=== PATIENT | male | born 1960 | race Caucasian/White ===

== ENCOUNTER 2018-04-13 09:06 | Emergency (ER) | payer MEDICAID ==
[2018-04-13] MEDS ORDERED: CLINDAMYCIN 600MG/50ML PREMIX 600 MG/50 ML BAG IVPB ONE (09:31)
--- NOTE | 2018-04-13 09:39 | Emergency Department Record ---
History of Present Illness - General Chief complaint: Abscess Stated complaint: LEFT SIDE FACIAL SWELLING Time Seen by Provider: 04/13/18 09:10 Source: Patient Mode of Arrival: Ambulatory Limitations: No limitations - History of Present Illness Initial comments: pt states he had a small bump on the front of her ear which he picked at and now he has erythwma, swelling and pain to the whole l side of his face and neck and ear complaint: Abscess/boil Onset/Timin -: Days(s) Hx Tetanus Toxoid Vaccination: Yes Location: Head, Face, Neck Severity: Moderate Severity scale (1-10): 8 Quality: Sharp Consistency: Constant Improves with: None Worsens with: Palpation Context: None Associated symptoms: Denies other symptoms Treatments Prior to Arrival: Attempted to drain pus at home - Related Data Home Medications Medication Instructions Recorded Confirmed Last Taken Clonazepam 1 mg PO DAILY 04/13/18 04/13/18 Unknown Allergies Allergy/AdvReac Type Severity Reaction Status Date / Time bee venom protein (honey bee) Allergy Intermediate SWELLING Unverified 10/21/17 11:05 (GENERAL) codeine Allergy Intermediate RASH Unverified 10/21/17 11:05 Travel Screening - Travel/Exposure Within Last 30 Days Have you traveled within the last 30 days?: No Review of Systems Reviewed: No additional complaints except as noted below Constitutional: Reports: As per HPI. Denies: Chills, Fever, Malaise, Night sweats, Weakness, Weight change Eyes: Reports: As per HPI. Denies: Eye discharge, Eye pain, Photophobia, Vision change ENT: Reports: As per HPI. Denies: Congestion, Dental pain, Ear pain, Epistaxis , Hearing loss, Throat pain Respiratory: Reports: As per HPI. Denies: Cough, Dyspnea, Hemoptysis, Stridor, Wheezes Cardiovascular: Reports: As per HPI. Denies: Arrhythmia, Chest pain, Dyspnea on exertion, Edema, Murmurs, Orthopnea, Palpitations, Paroxysmal nocturnal dyspnea, Rheumatic Fever, Syncope Endocrine: Reports: As per HPI. Denies: Fatigue, Heat or cold intolerance, Polydipsia, Polyuria Gastrointestinal: Reports: As per HPI. Denies: Abdominal pain, Constipation, Diarrhea, Hematemesis, Hematochezia, Melena, Nausea, Vomiting Genitourinary: Reports: As per HPI. Denies: Dysuria, Frequency, Hematuria, Incontinence, Retention, Testicular pain, Testicular mass, Urgency Musculoskeletal: Reports: As per HPI. Denies: Arthralgia, Back pain, Gout, Joint swelling, Myalgia, Neck pain Skin: Reports: As per HPI. Denies: Bruising, Change in color, Change in hair/ nails, Lesions, Pruritus, Rash Neurological: Reports: As per HPI. Denies: Abnormal gait, Confusion, Headache, Numbness, Paresthesias, Seizure, Tingling, Tremors, Vertigo, Weakness Psychiatric: Reports: As per HPI. Denies: Anxiety, Auditory hallucinations, Depression, Homicidal thoughts, Suicidal thoughts, Visual hallucinations Hematological/Lymphatic: Reports: As per HPI. Denies: Anemia, Blood Clots, Easy bleeding, Easy bruising, Swollen glands Past Medical History - SOCIAL HISTORY Smoking Status: Former smoker Alcohol Use: None Drug Use: None - RESPIRATORY Hx Respiratory Disorders: No - CARDIOVASCULAR Hx Cardio Disorders: Yes Hx Hypertension: Yes - NEURO Hx Neuro Disorders: No - GI Hx GI Disorders: No - Hx Genitourinary Disorders: No - ENDOCRINE Hx Endocrine Disorders: No - MUSCULOSKELETAL Hx Musculoskeletal Disorders: Yes - PSYCH Hx Psych Problems: Yes Hx Anxiety: Yes - HEMATOLOGY/ONCOLOGY Hx Hematology/Oncology Disorders: No Family Medical History Any Significant Family History?: No Physical Exam - General General Appearance: Alert, Oriented x3, Cooperative, Mild distress - Head Head exam: Normal inspection Head exam detail: General tenderness Image of Face/Head: 1 - tender, swelling, erythema - Eye Eye exam: Normal appearance, PERRL, EOMI Pupils: Normal accommodation - ENT ENT exam: Normal exam, Mucous membranes moist, Normal external ear exam, Normal orophraynx Ear exam: negative: Normal external inspection, External canal tenderness Nasal Exam: Normal inspection. negative: Discharge, Sinus tenderness Mouth exam: Normal external inspection, Tongue normal Teeth exam: Normal inspection. negative: Dental caries Throat exam: Normal inspection. negative: Tonsillar erythema, Tonsillar exudate - Neck Neck exam: Normal inspection, Full ROM. negative: Tenderness - Respiratory Respiratory exam: Normal lung sounds bilaterally. negative: Respiratory distress - Cardiovascular Cardiovascular Exam: Normal rhythm, Normal heart sounds, Tachycardia - GI/Abdominal GI/Abdominal exam: Soft, Normal bowel sounds. negative: Tenderness - Rectal Rectal exam: Deferred - exam: Deferred - Extremities Extremities exam: Normal inspection, Full ROM, Normal capillary refill. negative: Tenderness - Back Back exam: Reports: Normal inspection, Full ROM. Denies: Muscle spasm, Rash noted, Tenderness - Neurological Neurological exam: Alert, CN II-XII intact, Normal gait, Oriented X3 - Psychiatric Psychiatric exam: Normal affect, Normal mood - Skin Skin exam: Dry, Intact, Normal color, Warm Course Vital Signs 04/13/18 09:09 Temperature 97.9 F Pulse Rate 129 H Respiratory 18 Rate Blood Pressure 110/78 Pulse Ox 95 - Reevaluation(s) Reevaluation #1: 04/13/18 11:58 pt was told he needs to be admitted. he is concerned re his dad and meds at home. he is signing out ama but states he will return to be admitted Medical Decision Making - Lab Data Result diagrams: 04/13/18 09:40 04/13/18 09:40 Disposition Disposition: Other Clinical Impression: Cellulitis and abscess of face Disposition: Against Medical Advice Condition: (2) Stable Instructions: Cellulitis (ED) Additional Instructions: may return arturo Forms: Patient Portal Access Quality - Quality Measures Quality Measures: N/A - Blood Pressure Screening Does Patient Have Any of the Following: No Blood Pressure Classification: Normal BP Reading Systolic Measurement: 110 Diastolic Measurement: 78 Screening for High Blood Pressure: < Normal BP, F/U Not Required > [G8783]
[2018-04-13] MEDS ORDERED: 0.9 % SODIUM CHLORIDE 1,000 ML BAG IV ONE (09:41)
[2018-04-13 09:45] LABS: HEMATOCRIT 42.5 % (42.0-52.0); HEMOGLOBIN 14.8 gm/dl (14.0-18.0); MEAN CELL VOLUME 90.8 fl (81-97); MEAN CORPUSCULAR HEMOGLOBIN 31.6 pg (27-33); MEAN CORPUSCULAR HGB CONC 34.8 g/dl (32-36); MEAN PLATELET VOLUME 9.1 fl (7.4-10.4); PLATELET COUNT 192 K/uL (130-400); RED BLOOD COUNT 4.68 M/uL (4.40-5.70); RED CELL DISTRIBUTION WIDTH 12.4 % (11.5-14.5); WHITE BLOOD COUNT W/O DIFF 13.8 K/uL (4.2-12.2)
[2018-04-13 09:57] LABS: BLOOD UREA NITROGEN 7 mg/dL (6-20); CREATININE 0.8 mg/dL (0.7-1.2); EST GLOMERULAR FILTRATION RATE > 60 mL/min
[2018-04-13 09:59] LABS: GLUCOSE,RANDOM 196 mg/dL (74-109)
--- NOTE | 2018-04-14 11:03 | CT SCAN REPORT ---
EXAM: CT SCAN OF THE NECK WITH CONTRAST HISTORY: ABSCESS. THE PATIENT HAD A BUMP NEAR THE LEFT EAR ON GUERLINE. PATIENT TRIED TO SQUEEZE THE LUMP AND NOTHING CAME OUT. SUBSEQUENT SWELLING AND REDNESS ALONG THE LEFT SIDE OF THE FACE. TECHNIQUE: Standard CT imaging of the neck was performed in the axial plane with contrast. 100 ml of Omnipaque 300 were administered. Additional coronal and sagittal reformatted images were also performed. FINDINGS: There is a small loculated collection of fluid and air within the dermis anterior to the left ear. This measures 8 x 5 x 9 mm. There is extensive soft tissue edema on the left within the periauricular region and extending anteriorly to the left lateral orbital rim. This extends inferiorly to the submandibular region. The appearance is consistent with facial cellulitis. There is no other soft tissue air. There is no foreign body. The intraorbital contents are normal. There is minor mucosal thickening within the ethmoid sinuses. The sinuses are otherwise clear. The mastoid air cells and middle ear cavities are clear. Cerumen like material is noted within the left external auditory canal. The nasopharynx, oropharynx, hypopharynx, and larynx appear normal. There are scattered nonenlarged lymph odes within the neck bilaterally. There is no pathologic lymphadenopathy. The thyroid gland enhances homogeneously. The lung apices and superior mediastinum are normal. The patient is status post anterior cervical fusion at the C5-C6 level. There are no acute osseous abnormalities. IMPRESSION: FINDINGS CONSISTENT WITH LEFT FACIAL CELLULITIS. THERE IS A LOCULATED FLUID COLLECTION WITHIN THE DERMIS JUST ANTERIOR TO THE LEFT EAR MEASURING 8 X 5 X 9 MM. NO OTHER LOCULATED FLUID COLLECTIONS OR SOFT TISSUE AIR ARE IDENTIFIED. JOB NUMBER: [id number] [facility]
== END 2018-04-13 12:28 | disposition left against medical advice (07) ==
LOC: ER 09:06
DX: L03.211 Cellulitis of face (principal); I10 Essential (primary) hypertension; Z87.891 Personal history of nicotine dependence
CPT/HCPCS: 70491; 80048; 85027; J7030

== ENCOUNTER 2018-04-13 13:10 | Inpatient (IN) | payer MEDICAID ==
--- NOTE | 2018-04-13 13:58 | Emergency Department Record ---
History of Present Illness - General Chief complaint: Abscess Stated complaint: CELLULITIS Time Seen by Provider: 04/13/18 13:54 Source: Patient Mode of Arrival: Ambulatory Limitations: No limitations - History of Present Illness Initial comments: pt came back to be admitted. he was here earlier for facial cellulitis and was told he should be admitted. he signed out ama but now has returned. complaint: Abscess/boil -: Days(s) Hx Tetanus Toxoid Vaccination: Yes Location: Face Consistency: Getting worse Improves with: None Worsens with: None Context: None Associated symptoms: Denies other symptoms Treatments Prior to Arrival: Attempted to drain pus at home - Related Data Home Medications Medication Instructions Recorded Confirmed Last Taken Cyclobenzaprine HCl [Flexeril] 10 mg PO TID 04/13/18 04/13/18 Unknown Metoprolol Succinate 25 mg PO DAILY 04/13/18 04/13/18 Unknown Prazosin HCl [Minipress] 10 mg PO QHS 04/13/18 04/13/18 Unknown Allergies Allergy/AdvReac Type Severity Reaction Status Date / Time bee venom protein (honey bee) Allergy Intermediate SWELLING Unverified 10/21/17 11:05 (GENERAL) codeine Allergy Intermediate RASH Unverified 10/21/17 11:05 Review of Systems Reviewed: No additional complaints except as noted below Constitutional: Reports: As per HPI. Denies: Chills, Fever, Malaise, Night sweats, Weakness, Weight change Eyes: Reports: As per HPI. Denies: Eye discharge, Eye pain, Photophobia, Vision change ENT: Reports: As per HPI. Denies: Congestion, Dental pain, Ear pain, Epistaxis , Hearing loss, Throat pain Respiratory: Reports: As per HPI. Denies: Cough, Dyspnea, Hemoptysis, Stridor, Wheezes Cardiovascular: Reports: As per HPI. Denies: Arrhythmia, Chest pain, Dyspnea on exertion, Edema, Murmurs, Orthopnea, Palpitations, Paroxysmal nocturnal dyspnea, Rheumatic Fever, Syncope Endocrine: Reports: As per HPI. Denies: Fatigue, Heat or cold intolerance, Polydipsia, Polyuria Gastrointestinal: Reports: As per HPI. Denies: Abdominal pain, Constipation, Diarrhea, Hematemesis, Hematochezia, Melena, Nausea, Vomiting Genitourinary: Reports: As per HPI. Denies: Dysuria, Frequency, Hematuria, Incontinence, Retention, Testicular pain, Testicular mass, Urgency Musculoskeletal: Reports: As per HPI. Denies: Arthralgia, Back pain, Gout, Joint swelling, Myalgia, Neck pain Skin: Reports: As per HPI. Denies: Bruising, Change in color, Change in hair/ nails, Lesions, Pruritus, Rash Neurological: Reports: As per HPI. Denies: Abnormal gait, Confusion, Headache, Numbness, Paresthesias, Seizure, Tingling, Tremors, Vertigo, Weakness Psychiatric: Reports: As per HPI. Denies: Anxiety, Auditory hallucinations, Depression, Homicidal thoughts, Suicidal thoughts, Visual hallucinations Hematological/Lymphatic: Reports: As per HPI. Denies: Anemia, Blood Clots, Easy bleeding, Easy bruising, Swollen glands Past Medical History - SOCIAL HISTORY Smoking Status: Former smoker Drug Use: None - RESPIRATORY Hx Respiratory Disorders: No - CARDIOVASCULAR Hx Cardio Disorders: Yes Hx Hypertension: Yes - NEURO Hx Neuro Disorders: No - GI Hx GI Disorders: No - Hx Genitourinary Disorders: No - ENDOCRINE Hx Endocrine Disorders: No - MUSCULOSKELETAL Hx Musculoskeletal Disorders: Yes - PSYCH Hx Psych Problems: Yes Hx Anxiety: Yes - HEMATOLOGY/ONCOLOGY Hx Hematology/Oncology Disorders: No Physical Exam - General General Appearance: Alert, Oriented x3, Cooperative, Mild distress - Head Head exam: Normal inspection Image of Face/Head: 1 - swelling, erythema, tender, purulent drainage - Eye Eye exam: Normal appearance, PERRL, EOMI Pupils: Normal accommodation - ENT ENT exam: Normal exam, Mucous membranes moist, Normal external ear exam, Normal orophraynx Ear exam: Normal external inspection. negative: External canal tenderness Nasal Exam: Normal inspection. negative: Discharge, Sinus tenderness Mouth exam: Normal external inspection, Tongue normal Teeth exam: Normal inspection. negative: Dental caries Throat exam: Normal inspection. negative: Tonsillar erythema, Tonsillar exudate - Neck Neck exam: Normal inspection, Full ROM. negative: Tenderness - Respiratory Respiratory exam: Normal lung sounds bilaterally. negative: Respiratory distress - Cardiovascular Cardiovascular Exam: Normal rhythm, Normal heart sounds, Tachycardia - GI/Abdominal GI/Abdominal exam: Soft, Normal bowel sounds. negative: Tenderness - Rectal Rectal exam: Deferred - exam: Deferred - Extremities Extremities exam: Normal inspection, Full ROM, Normal capillary refill. negative: Tenderness - Back Back exam: Reports: Normal inspection, Full ROM. Denies: Muscle spasm, Rash noted, Tenderness - Neurological Neurological exam: Alert, CN II-XII intact, Normal gait, Oriented X3 - Psychiatric Psychiatric exam: Normal affect, Normal mood - Skin Skin exam: Dry, Intact, Normal color, Warm Disposition Disposition: Admit Clinical Impression: Facial cellulitis Disposition: Still a Patient at [facility] Decision to Admit: Admit from ER Decision to Admit Date: 04/13/18 Decision to Admit Time: 14:17 Forms: Patient Portal Access Quality - Quality Measures Quality Measures: N/A - Blood Pressure Screening Does Patient Have Any of the Following: Active Dx of HTN Blood Pressure Classification: Hypertensive Reading Systolic Measurement: 137 Diastolic Measurement: 93 Screening for High Blood Pressure: Patient Exclusion, Hx of HTN [G9744]
[2018-04-13] MEDS ORDERED: 0.9 % SODIUM CHLORIDE 1,000 ML BAG IV ONE (14:15)
[2018-04-13] MEDS ORDERED: LORAZEPAM 2 MG/ML VIAL IV ONE (14:16)
[2018-04-13] MEDS ORDERED: ONDANSETRON 4 MG ODT TABLET SL ONE (14:16)
[2018-04-13] MEDS ORDERED: HYDROMORPHONE HCL 2 MG/ML VIAL IVP ONE (14:16)
[2018-04-13] MEDS ORDERED: ACETAMINOPHEN 500 MG TABLET PO PRN (15:11)
[2018-04-13] MEDS ORDERED: ONDANSETRON HCL IV 4 MG/2 ML VIAL IVP PRN (15:11)
[2018-04-13] MEDS ORDERED: CYCLOBENZAPRINE 10MG TABLET PO PRN (15:55)
[2018-04-13] MEDS ORDERED: CLONAZEPAM 1MG TABLET PO PRN (15:55)
[2018-04-13] MEDS ORDERED: CYCLOBENZAPRINE 10MG TABLET PO SCH (16:00)
[2018-04-13] MEDS: CLINDAMYCIN 600MG/50ML PREMIX 600 MG/50 ML BAG IVPB SCH ×2 (16:04→23:40)
[2018-04-13] MEDS: CYCLOBENZAPRINE 10MG TABLET PO SCH (16:25)
[2018-04-13] MEDS: HYDROMORPHONE HCL 2 MG/ML VIAL IVP PRN ×2 (18:20→22:29)
[2018-04-13] MEDS ORDERED: CLONAZEPAM 1MG TABLET PO SCH (22:00)
[2018-04-13] MEDS: ZOLPIDEM TARTRATE 5 MG TABLET PO SCH (22:27)
[2018-04-13] MEDS: PRAZOSIN HCL 1 MG CAPSULE PO SCH ×2 (22:38→23:01)
[2018-04-14] MEDS: HYDROMORPHONE HCL 2 MG/ML VIAL IVP PRN ×5 (04:46→22:55)
[2018-04-14 06:41] LABS: BASO % 0.1 % (0-6); EOS % 2.1 % (0-6); GRAN % 73.3 % (47-80); HEMATOCRIT 34.9 % (42.0-52.0); HEMOGLOBIN 11.5 gm/dl (14.0-18.0); LYMPH % 14.8 % (16-45); MEAN CELL VOLUME 94.1 fl (81-97); MEAN PLATELET VOLUME 8.9 fl (7.4-10.4); MONO % 9.7 % (0-9); PLATELET COUNT 168 K/uL (130-400); RED BLOOD COUNT 3.71 M/uL (4.40-5.70); RED CELL DISTRIBUTION WIDTH 12.2 % (11.5-14.5); WHITE BLOOD COUNT W/O DIFF 9.7 K/uL (4.2-12.2)
[2018-04-14 06:47] LABS: MEAN CORPUSCULAR HEMOGLOBIN 30.9 pg (27-33)
[2018-04-14 06:55] LABS: BLOOD UREA NITROGEN 5 mg/dL (6-20); CREATININE 0.6 mg/dL (0.7-1.2); EST GLOMERULAR FILTRATION RATE > 60 mL/min; GLUCOSE,RANDOM 128 mg/dL (74-109)
[2018-04-14] MEDS: CLINDAMYCIN 600MG/50ML PREMIX 600 MG/50 ML BAG IVPB SCH ×2 (08:15→17:24)
[2018-04-14] MEDS: METOPROLOL SUCC 25 MG TAB.ER PO SCH ×2 (08:16→10:39)
[2018-04-14] MEDS: CLONAZEPAM 1MG TABLET PO SCH ×2 (08:17→10:39)
[2018-04-14] MEDS: CYCLOBENZAPRINE 10MG TABLET PO SCH ×2 (08:17→10:38)
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
[2018-04-14] MEDS: HYDROCODONE/APAP 10/325 TABLET PO PRN ×2 (13:26→21:34)
[2018-04-14] MEDS ORDERED: NAPROXEN 250 MG TABLET PO ONE (16:45)
[2018-04-14] MEDS ORDERED: MUPIROCIN OINT 22 GM TUBE TOP PRN (16:49)
[2018-04-14] MEDS: VANCOMYCIN HCL 1,500 MG in 0.9 % SODIUM CHLORIDE 500ML 500 ML IVPB SCH (17:35)
[2018-04-14] MEDS: MUPIROCIN OINT 22 GM TUBE TOP SCH ×2 (17:36→22:54)
[2018-04-14] MEDS: ZOLPIDEM TARTRATE 5 MG TABLET PO SCH (22:53)
[2018-04-14] MEDS: PRAZOSIN HCL 1 MG CAPSULE PO SCH (22:54)
[2018-04-15] MEDS: HYDROMORPHONE HCL 2 MG/ML VIAL IVP PRN ×5 (02:17→22:51)
[2018-04-15] MEDS: VANCOMYCIN HCL 1,500 MG in 0.9 % SODIUM CHLORIDE 500ML 500 ML IVPB SCH ×2 (02:22→20:43)
[2018-04-15] MEDS: NAPROXEN 250 MG TABLET PO SCH ×2 (06:36→20:49)
[2018-04-15 06:38] LABS: BASO % 0.3 % (0-6); EOS % 4.1 % (0-6); HEMATOCRIT 36.6 % (42.0-52.0); HEMOGLOBIN 12.1 gm/dl (14.0-18.0); LYMPH % 23.3 % (16-45); MEAN CELL VOLUME 92.7 fl (81-97); MEAN CORPUSCULAR HEMOGLOBIN 30.6 pg (27-33); MEAN CORPUSCULAR HGB CONC 33.1 g/dl (32-36); MEAN PLATELET VOLUME 8.9 fl (7.4-10.4); MONO % 11.3 % (0-9); PLATELET COUNT 184 K/uL (130-400); RED BLOOD COUNT 3.95 M/uL (4.40-5.70); WHITE BLOOD COUNT W/O DIFF 6.7 K/uL (4.2-12.2)
[2018-04-15 06:52] LABS: ALB/GLOB RATIO 1.2 (1.1-1.8); ALBUMIN 3.5 g/dL (4.0-5.0); ALKALINE PHOSPHATASE 46 U/L (55-149); ALT/SGPT 10 U/L (<41); AST/SGOT 8 U/L (10.0-50.0); BLOOD UREA NITROGEN 8 mg/dL (6-20); CREATININE 0.6 mg/dL (0.7-1.2); EST GLOMERULAR FILTRATION RATE > 60 mL/min; GLUCOSE,RANDOM 103 mg/dL (74-109); TOTAL PROTEIN 6.4 g/dL (6.6-8.7)
[2018-04-15] MEDS: MUPIROCIN OINT 22 GM TUBE TOP SCH ×4 (08:00→22:21)
[2018-04-15] MEDS: CYCLOBENZAPRINE 10MG TABLET PO SCH ×2 (08:05→10:00)
[2018-04-15] MEDS: CLONAZEPAM 1MG TABLET PO SCH ×2 (08:05→10:00)
[2018-04-15] MEDS: METOPROLOL SUCC 25 MG TAB.ER PO SCH ×2 (08:05→10:00)
[2018-04-15] MEDS: HYDROCODONE/APAP 10/325 TABLET PO PRN ×3 (08:08→22:22)
[2018-04-15] MEDS ORDERED: VANCOMYCIN HCL 1,500 MG in 0.9 % SODIUM CHLORIDE 500ML 500 ML IVPB SCH ×3 (08:30→19:00)
--- NOTE | 2018-04-15 10:59 | Inpatient Certification ---
Inpatient Certification Admit to inpatient care: Based on my medical assessment, after consideration of patient's risk factors (age, co-morbidities and patient presenting symptoms and acuity), I expect that this patient will remain in the hospital greater than or equal to two midnights and that the services needed warrant inpatient care because: Patient Risk Factors: [Acute on Chronic pain, Occipital Neuralgia] Estimated length of stay: [72] The patient may reasonably be expected to be discharged or transferred to a hospital within 96 hours after admission to [facility]. Services needed: [IV Therapy] Post hospital care (if known): [Home] I certify that my determination is in accordance with my understanding of Medicare requirements for reasonable and necessary inpatient services. 04/15/18 10:59 04/15/18 12:22
--- NOTE | 2018-04-15 11:00 | Physician Progress Note ---
Subjective - Date Date of Physician Progress Note: 04/15/18 - Subjective Subjective Comment: States that he thinks that cellulitis is improving in some areas but not in others. Pain is the same. Worried that the nerve blocks that he has had for his occipital neuralgia will wear off and not work anymore. Feels like his head is "squishy". Denies nausea. Has not had a bowel movement yet but feels like he is going to have one. States that if he hasn't had one by tomorrow, he might need a stool softener. Location: Left, Head Radiation: Neck Severity scale (1-10): 8 Quality: Aching Consistency: Constant Improves with: Medication Associated symptoms: Fever/chills Objective - Vital Signs Vital Signs: Vital Signs - Last 24 Hrs Temp Pulse Resp BP Pulse Ox 04/15/18 09:00 101 H 16 04/15/18 08:13 98.2 F 101 H 16 124/77 95 04/15/18 08:08 98.2 F 95 H 16 124/77 95 04/15/18 06:00 98.6 F 81 16 130/77 96 04/15/18 02:00 98.1 F 78 16 130/82 95 04/14/18 22:00 99.0 F 93 H 16 126/74 99 04/14/18 20:48 78 16 04/14/18 18:00 99.8 F H 78 16 131/81 98 04/14/18 14:00 99.7 F H 101 H 16 131/87 98 - General General Appearance: Alert, Oriented x3, Cooperative, Mild distress Limitations: No limitations - Head Head exam: Other Head exam detail: Other (periorbital cellulitis, malodorous, purulent drainage from open area near left scientologist) - Eye Eye exam: PERRL, EOMI, Other (left orbital edema) Pupils: Normal accommodation - ENT ENT exam: Mucous membranes moist, Normal orophraynx Ear exam: Other (Left ear edematous and erythematous, warm to touch). negative : External canal tenderness Nasal Exam: Normal inspection. negative: Discharge, Sinus tenderness Mouth exam: Normal external inspection, Tongue normal Teeth exam: Normal inspection. negative: Dental caries Throat exam: Normal inspection. negative: Tonsillar erythema, Tonsillar exudate - Neck Neck exam: Other (Erythema extending down into left neck, past drawn margins). negative: Tenderness - Respiratory Respiratory exam: Normal lung sounds bilaterally. negative: Respiratory distress - Cardiovascular Cardiovascular Exam: Normal rhythm, Normal heart sounds - GI/Abdominal GI/Abdominal exam: Soft, Normal bowel sounds. negative: Tenderness - Rectal Rectal exam: Deferred - exam: Deferred - Extremities Extremities exam: Normal inspection, Full ROM, Normal capillary refill. negative: Tenderness - Back Back exam: Reports: Normal inspection, Full ROM. Denies: Muscle spasm, Rash noted, Tenderness - Neurological Neurological exam: Alert, CN II-XII intact, Normal gait, Oriented X3 - Psychiatric Psychiatric exam: Normal affect, Normal mood - Skin Skin exam: Erythema (to left side of face, neck and ear), Normal color, Warm Assessment and Plan - Assessment and Plan (1) Facial cellulitis Current Visit: Yes Status: Acute Base Code: L03.211 - CELLULITIS OF FACE Comment: 04/15/18: -Erythema and edema to to left side of face, ear and left side of neck, extending past drawn margins down into left side of chest -Preliminary wound culture = Gram + Cocci -Preliminary blood culture x2 = No growth -WBC 13.2 in ED on 04/13/18 which has decreased to 6.7 -Soft tissue neck CT: consistent with left facial cellulitis -Stopped Clindamycin yesterday -Started Vancomycin in the afternoon on 04/14/18, pharmacy to dose -Awaiting final would culture (2) Facial pain, acute Current Visit: Yes Status: Acute Base Code: R51 - HEADACHE Comment: 04/15/18 : -Continue home dose of [place] 10/325mg TID -Continue PO Tylenol PRN -Decrease IV Dilaudid from 1mg to 0.5mg IVP q. 4 hours as needed for severe, breakthrough pain -May apply warm compresses 3-4x/day for 20 minutes at a time -Naproxen 500mg PO q. 12 hours (3) DVT prophylaxis Current Visit: Yes Status: Acute Base Code: UNS1479 - Comment: 04/15/18: -Low risk -Encouraged pt to ambulate frequently within the room (4) Full code status Current Visit: Yes Status: Acute Base Code: Z78.9 - OTHER SPECIFIED HEALTH STATUS Comment: 04/15/18 -Full code Results - Labs Result Diagrams: 04/15/18 06:30 04/15/18 06:30 Labs Last 24 Hours: Laboratory Results - last 24 hr 04/15/18 04/15/18 06:30 06:30 WBC 6.7 RBC 3.95 L Hgb 12.1 L Hct 36.6 L MCV 92.7 MCH 30.6 MCHC 33.1 RDW 12.0 Plt Count 184 MPV 8.9 Gran % 61.0 Neutrophils % 61.0 Lymphocytes % 23.3 Monocytes % 11.3 H Eosinophils % 4.1 Basophils % 0.3 Lymphocytes 24.0 Monocytes 11.0 H Eosinophil Count 4.0 Sodium 142 Potassium 3.9 Chloride 103 Carbon Dioxide 25.0 Anion Gap 14.0 BUN 8 Creatinine 0.6 L Estimated GFR > 60 Random Glucose 103 Calcium 8.6 Total Bilirubin 0.50 AST 8 L ALT 10 Alkaline Phosphatase 46 L Total Protein 6.4 L Albumin 3.5 L Globulin 2.9 Albumin/Globulin Ratio 1.2 DVT/PE Assessment - Risk for VTE Risk for VTE: No Risk Level: Very Low Risk Assessment Date: 04/14/18 Risk Assessment Time: 09:30 VTE Orders Placed or Will Be Placed: Yes - Active Medicaitons Current Medications: Current Medications Acetaminophen (Tylenol 500mg Tab) 1,000 mg PO Q6H PRN PRN Reason: PAIN - MILD(1-4)/FEVER Hydrocodone Bitart/Acetaminophen ([place] 10mg/325mg) 1 each PO TID PRN PRN Reason: PAIN - MILD TO MODERATE (1-7) Last Admin: 04/15/18 08:08 Dose: 1 each Clonazepam (Klonopin) 1 mg PO DAILY [facility] Last Admin: 04/15/18 08:05 Dose: 1 mg Clonazepam (Klonopin) 0.5 mg PO BID PRN PRN Reason: ANXIETY Cyclobenzaprine HCl (Flexeril) 10 mg PO DAILY [facility] Last Admin: 04/15/18 08:05 Dose: 10 mg Cyclobenzaprine HCl (Flexeril) 10 mg PO BID PRN PRN Reason: MUSCLE SPASM Hydromorphone HCl (Dilaudid) 0.5 mg IVP Q4H PRN PRN Reason: PAIN - SEVERE (8-10) Last Admin: 04/15/18 07:46 Dose: 0.5 mg Vancomycin HCl 1,500 mg/ (Sodium Chloride) 500 mls @ 333.333 mls/hr IVPB Q8H [facility] Stop: 04/20/18 10:31 Metoprolol Succinate (Toprol Xl) 25 mg PO DAILY [facility] Last Admin: 04/15/18 08:05 Dose: 25 mg Mupirocin (Bactroban) 22 gm TOP TID [facility] Last Admin: 04/14/18 22:54 Dose: 22 gm Naproxen (Naprosyn) 500 mg PO Q12H [facility] Last Admin: 04/15/18 06:36 Dose: 500 mg Ondansetron HCl (Zofran) 4 mg IVP Q8H PRN PRN Reason: NAUSEA Prazosin HCl (Prazosin Hcl) 10 mg PO QHS [facility] Last Admin: 04/14/18 22:54 Dose: Not Given Zolpidem Tartrate (Ambien) 10 mg PO QHS [facility] Last Admin: 04/14/18 22:53 Dose: 10 mg AMI Plan - Labs Result Diagrams: 04/15/18 06:30 04/15/18 06:30
[2018-04-15] MEDS: ZOLPIDEM TARTRATE 5 MG TABLET PO SCH (22:19)
[2018-04-15] MEDS: PRAZOSIN HCL 1 MG CAPSULE PO SCH (22:23)
[2018-04-16] MEDS: VANCOMYCIN HCL 1,500 MG in 0.9 % SODIUM CHLORIDE 500ML 500 ML IVPB SCH (04:43)
[2018-04-16] MEDS: NAPROXEN 250 MG TABLET PO SCH (08:16)
[2018-04-16] MEDS: CYCLOBENZAPRINE 10MG TABLET PO SCH ×2 (08:16→10:56)
[2018-04-16] MEDS: METOPROLOL SUCC 25 MG TAB.ER PO SCH ×2 (08:16→10:56)
[2018-04-16] MEDS: CLONAZEPAM 1MG TABLET PO SCH ×2 (08:17→10:56)
[2018-04-16] MEDS: HYDROCODONE/APAP 10/325 TABLET PO PRN (08:18)
[2018-04-16] MEDS ORDERED: LINEZOLID 600 MG TABLET PO ONE (10:00)
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
== END 2018-04-16 12:00 | disposition home or self-care (01) | DRG 603 ==
LOC: ER 13:10 → MEDSURG 15:05 → OBSVTOIN 15:05
PROVIDERS: ADMIT Internal Medicine; ATTEND Internal Medicine
DX: L03.211 Cellulitis of face (principal); R51 Headache; I10 Essential (primary) hypertension; M54.81 Occipital neuralgia
CPT/HCPCS: 70491; 80048; 80053; 80202; 85025; 85027; 96365; 96374; 96375; 99217; 99223; 99225; 99284; 99285; J7030; J7040